=== PATIENT | male | born 1990 | race Two or more races ===

== ENCOUNTER 2023-12-14 11:05 | Day surgery (SDC) | payer SELFPAY ==
[2023-12-14 12:25] LABS: EPI CELLS 1 /uL (0-25.1); HYALINE CASTS 0 /uL (0-3.1); PH,URINE 5.5 (5.0-8.0); URINE APPEARANCE TURBID; URINE BACTERIA 0 /uL (0-1359); URINE BILIRUBIN NEGATIVE (NEGATIVE); URINE COLOR ORANGE; URINE GLUCOSE (UA) NEGATIVE (NEGATIVE); URINE KETONE TRACE (NEGATIVE); URINE LEUK ESTERASE 1+ (NEGATIVE); URINE NITRITE NEGATIVE (NEGATIVE); URINE PROTEIN 2+ (NEGATIVE); URINE RBC 14561 /uL (0-23.9); URINE WBC 26 /uL (0-25.8)
[2023-12-14] MEDS: ACETAMINOPHEN 500 MG TABLET (FP) PO ONE (12:45)
[2023-12-14] MEDS: KETOROLAC TROMETHAMINE 30 MG/1 ML VIAL IM ONE (12:45)
[2023-12-14] MEDS: LIDOCAINE 4% PATCH TP ONE (12:45)
[2023-12-14] MEDS ORDERED: morphine SULFATE 4 MG/ML VIAL ONE (12:51)
[2023-12-14] MEDS: morphine CARPU-JECT 4 MG/1 ML DISP.SYRIN IVPUSH ONE (13:00)
[2023-12-14 13:13] LABS: BASO % 0.6 % (0-2.0); EOS % 0.1 % (0-4.5); HEMATOCRIT 47.6 % (35.4-49); MCH 31.8 pg (25.7-33.7); MCHC 33.7 g/dl (32.0-35.9); MEAN CELL VOLUME 94.4 fl (80-96); MEAN PLT VOLUME 9.7 fl (7.5-11.1); MONO % 3.6 % (3.8-10.2); NEUT % 82.7 % (42.8-82.8); PLATELET COUNT 234 10^3/uL (134-434); RBC 5.04 M/mm3 (4.00-5.60); RDW 12.8 % (11.9-15.9); WHITE BLOOD COUNT 15.4 K/mm3 (4.0-10.0)
[2023-12-14 13:32] LABS: CHLORIDE 104 mmol/L (98-107); POTASSIUM 3.6 mmol/L (3.5-5.1); SODIUM 139 mmol/L (136-145)
[2023-12-14 13:34] LABS: ALBUMIN 4.5 g/dl (3.4-5.0); CALCIUM 9.6 mg/dL (8.5-10.1)
[2023-12-14 13:35] LABS: ANION GAP 6 mmol/L (4-13); BLOOD UREA NITROGEN 12.6 mg/dL (7-18); CO2 29 mmol/L (21-32); GLUCOSE,RANDOM 116 mg/dL (74-106)
[2023-12-14 13:37] LABS: SGPT/ALT 46 U/L (13-61)
[2023-12-14 13:38] LABS: CREATININE 1.4 mg/dL (0.55-1.3); SGOT/AST 19 U/L (15-37)
[2023-12-14 13:39] LABS: BILIRUBIN,TOTAL 0.8 mg/dL (0.2-1); TOT PROT 7.9 g/dl (6.4-8.2)
[2023-12-14 13:40] LABS: ALK PHOS 66 U/L (45-117)
[2023-12-14 14:54] LABS: HIV INTERPRETATION NEGATIVE (NEGATIVE)
[2023-12-14] MEDS: SODIUM CHLORIDE 0.9% 500 ML INFUS.BAG IV ONE (15:18)
[2023-12-14] MEDS ORDERED: LACTATED RINGERS SOLUTION 1,000 ML/1,000 ML INFUS.BAG IV SCH (15:30)
[2023-12-14] MEDS ORDERED: ACETAMINOPHEN 1000 MG/100 ML BAG IVPB PRN (15:30)
[2023-12-14] MEDS ORDERED: ACETAMINOPHEN INJECTION 100 ML ONE ×2 (16:02→18:55)
[2023-12-14] MEDS ORDERED: TAMSULOSIN HCL 0.4 MG CAP ONE (16:02)
[2023-12-14] MEDS: TAMSULOSIN HCL 0.4 MG CAP PO ONE (16:07)
[2023-12-14 16:16] LABS: INR 1.1 (0.83-1.09); PROTHROMBIN TIME (PATIENT) 12.4 SEC (9.7-13.0)
[2023-12-14] MEDS ORDERED: LIDOCAINE HCL/PF 2% SDV 5ML VIAL ONE (16:54)
[2023-12-14] MEDS ORDERED: PROPOFOL 20 ML ONE (16:54)
[2023-12-14] MEDS ORDERED: DEXAMETHASONE SOD PHOSPHATE 4 MG/1 ML VIAL ONE (16:54)
[2023-12-14] MEDS ORDERED: ONDANSETRON 4 MG/2 ML VIAL ONE (16:54)
[2023-12-14] MEDS: IOHEXOL 300 MG/ML INFUS..BTL IV ONE (17:20)
[2023-12-14] MEDS ORDERED: ONDANSETRON 4 MG/2 ML VIAL IVPUSH PRN (17:59)
[2023-12-14] MEDS ORDERED: LACTATED RINGERS SOLUTION 1,000 ML IV SCH (18:00)
[2023-12-14] MEDS: LACTATED RINGERS SOLUTION 1,000 ML/1,000 ML INFUS.BAG IV SCH (18:52)
[2023-12-14] MEDS: ACETAMINOPHEN 1000 MG/100 ML BAG IVPB PRN (19:02)
[2023-12-14] MEDS ORDERED: LIDOCAINE PATCH REMOVAL MC ONE (22:00)
[2023-12-15 01:56] VITALS: BMI 31.1
[2023-12-15 09:14] VITALS: BP 119/68; PULSE 86; RESP 20; TEMP 98.3
[2023-12-15 09:18] LABS: BASO % 0.3 % (0-2.0); HEMATOCRIT 42.2 % (35.4-49); HEMOGLOBIN 13.9 GM/dL (11.7-16.9); LYMPH % 9.3 % (8-40); MCH 30.9 pg (25.7-33.7); MCHC 32.9 g/dl (32.0-35.9); MEAN CELL VOLUME 93.8 fl (80-96); MEAN PLT VOLUME 9.5 fl (7.5-11.1); MONO % 4.3 % (3.8-10.2); NEUT % 86.1 % (42.8-82.8); PLATELET COUNT 205 10^3/uL (134-434); RBC 4.49 M/mm3 (4.00-5.60); RDW 13.4 % (11.9-15.9); WHITE BLOOD COUNT 11.2 K/mm3 (4.0-10.0)
[2023-12-15] MEDS: CEFTRIAXONE 1 GM in DEXTROSE 5%-WATER - 50 ML IVPB SCH (09:22)
[2023-12-15 09:31] LABS: POTASSIUM 3.7 mmol/L (3.5-5.1)
[2023-12-15 09:32] LABS: CALCIUM 9.1 mg/dL (8.5-10.1)
[2023-12-15 09:33] LABS: BLOOD UREA NITROGEN 11.3 mg/dL (7-18); MAGNESIUM 1.9 mg/dL (1.8-2.4)
[2023-12-15 09:36] LABS: CREATININE 1.2 mg/dL (0.55-1.3)
== END 2023-12-15 12:04 | disposition home or self-care (01) ==
LOC: JER 11:05 → JERBED 15:33 → UNDOADMOB 15:33 → SUATTDRO 16:21 → JASUSAT 16:21 → J8W 19:39 → JERBED 19:39 → JASUSAT 12-15 12:04
PROVIDERS: ATTEND Nurse Practitioner Acute Care
CPT/HCPCS: 36415; 74176-TC; 76000-TC-FY; 80048; 80053; 81003; 82550; 82553; 83735; 85025; 85610; 86803; 86850; 86900; 86901; 87086; 87389; 93005; 93010; 94760; 99285-25; C2617; J0131

== ENCOUNTER 2024-02-16 07:34 | Day surgery (SDC) | payer OTHER ==
[2024-02-13 10:41] VITALS: BMI 31.0
[2024-02-16 07:10] VITALS: RESP 20
[2024-02-16] MEDS ORDERED: MIDAZOLAM HCL 2 MG/2 ML SINGLE DOSE VIAL ONE (08:38)
[2024-02-16 10:03] VITALS: TEMP 97.3
[2024-02-16 17:21] VITALS: BP 118/78; PULSE 70
== END 2024-02-16 15:15 | disposition home or self-care (01) ==
LOC: JASU-SURG 07:34
PROVIDERS: ATTEND Urology
PROC: 0TF4XZZ Fragmentation in Left Kidney Pelvis, External Approach (ICD-10-PCS; principal; 2024-02-16 16:30)
DX: N20.0 Calculus of kidney (principal)